=== PATIENT | female | born 1955 | race Caucasian/White ===

== ENCOUNTER 2021-12-16 07:15 | Day surgery (SDC) | payer MEDICARE, MEDICAID, SELFPAY ==
[2021-12-11 15:44] VITALS: BMI 28.3
--- NOTE | 2021-12-13 15:07 | P.CONAN_ITS ---
Documented by User: Latanya Mitchell NP 12/13/21 15:07 HPI - Anesthesia Eval Consult details Narrative: 66yo F for Left Cataract Extraction IOL Insertion PCP cleared No previous cataract on record PMFSH Past Medical History Medical History Arthritis Cataract Diabetes HTN (hypertension) Unvaccinated for covid-19 Surgical History Surgical History History of nasal surgery Hx of colonoscopy Social History Social History Patient Tobacco Use Status: Never used Tobacco Are you DNR?: No Advance Directives: No Advance Directives Information Provided: Yes Advance Directives on File: No Meds Allergies Allergy/AdvReac Type Severity Reaction Status Date / Time No Known Allergies Allergy Verified 12/11/21 15:42 Home Medications Medication Instructions Recorded Confirmed Last Taken Type aspirin 81 mg tablet,delayed 1 tab PO DAILY 12/11/21 12/11/21 12/15/21 History release dulaglutide 1.5 mg/0.5 mL 1.5 mg subcut QWEEK 12/11/21 12/11/21 Unknown History subcutaneous pen injector (Trulicity) glimepiride 4 mg tablet 1 tab PO DAILY 12/11/21 12/11/21 Unknown History insulin glargine 100 unit/mL (3 40 unit subcut BEDTIME 12/11/21 12/11/21 Unknown History mL) subcutaneous pen (Lantus Solostar U-100 Insulin) lisinopril 20 1 tab PO DAILY 12/11/21 12/11/21 Unknown History mg-hydrochlorothiazide 12.5 mg tablet Exam Exam Date and Time: December 13, 2021 1507 Height,Weight and Vital Signs: Height 5 ft 4.96 in Weight 77.111 kg Assessment and Plan Assessment Anesthesia Assessment: Chart Reviewed Documented by User: Dena Wilson MD 12/16/21 08:43 [facility], [facility] Past Medical History Medical History Arthritis Cataract Diabetes HTN (hypertension) Unvaccinated for covid-19 Family History Family history of problems with anesthesia: No Surgical History Surgical History History of nasal surgery Hx of colonoscopy History of Problems with Anesthesia: No Social History Social History Patient Tobacco Use Status: Never used Tobacco Are you DNR?: No Advance Directives: No Advance Directives Information Provided: Yes Advance Directives on File: No Meds Allergies Allergy/AdvReac Type Severity Reaction Status Date / Time No Known Allergies Allergy Verified 12/11/21 15:42 Home Medications Medication Instructions Recorded Confirmed Last Taken Type aspirin 81 mg tablet,delayed 1 tab PO DAILY 12/11/21 12/11/21 12/15/21 History release dulaglutide 1.5 mg/0.5 mL 1.5 mg subcut QWEEK 12/11/21 12/11/21 Unknown History subcutaneous pen injector (Trulicity) glimepiride 4 mg tablet 1 tab PO DAILY 12/11/21 12/11/21 Unknown History insulin glargine 100 unit/mL (3 40 unit subcut BEDTIME 12/11/21 12/11/21 Unknown History mL) subcutaneous pen (Lantus Solostar U-100 Insulin) lisinopril 20 1 tab PO DAILY 12/11/21 12/11/21 Unknown History mg-hydrochlorothiazide 12.5 mg tablet Exam Height,Weight and Vital Signs: Height 5 ft 4.96 in Weight 77.111 kg Vital Signs Temp Pulse Resp BP Pulse Ox O2 Del Method 12/16/21 07:44 96.7 F L 68 18 157/74 H 98 Room Air Pertinent Lab Results Pertinent Lab Results: Lab Results 12/16/21 Range/Units 07:59 POC Glucose 128 H (60-115) mg/dL Airway Mallampati Class: II TM Dist: >3cm Neck ROM: Full Denture: Upper and Lower Heart: RRR Lungs: CTAB Assessment and Plan Assessment Anesthesia Assessment: Anesthesia Plan Discussed Final Anesthetic Review Family History of Problems with Anesthesia: No History of Problems with Anesthesia: No NPO: Yes ASA Class: II Final Preanesthetic Review: No Changes in Pt Med Stat, Meds/Allgs Chart Reviewed, Consent Obtained/Reviewed and Anes Risks/Benef Reviewed Patient Risk: Low Procedure Risk: Low Assessment/Block/Sedation in SS: Assess/Block/Sedation-SS Anesthetic Plan Anesthetic Plan: MAC: Disposition: Standard PACU
--- NOTE | 2021-12-13 16:06 | MHC.SHP ---
Pre-Procedural Eval Section A Date of Service: 12/13/21 The patient is an INPATIENT: No Changes since office visit: No Cold of Flu in the past 2 weeks, No New Medical Problems, No Changes in Medication and No Patient answered all questions The History & Physical has been completed within 30 days and I have reviewed it.: Yes Section B Chief Complaint: cataract Allergies: Allergies Allergy/AdvReac Type Severity Reaction Status Date / Time No Known Allergies Allergy Verified 12/11/21 15:42 Plan Diagnosis/Plan: Unchanged I have reviewed the history and physical and performed a pertinent physical examination on my patient. No changes have occurred unless specified.
[2021-12-16 07:44] VITALS: BP 157/74; PULSE 68; RESP 18; TEMP 35.9; O2SAT 98
[2021-12-16] MEDS: Cyclopentolate 1 % Ophth Sol 2 ML DRPBTL 1 DROP EYE-LEFT ×3 (08:01→08:03)
[2021-12-16] MEDS: Phenylephrine HCL 2.5% Oph SoL 2 ML BOTTLE 1 DROP EYE-LEFT ×3 (08:01→08:04)
[2021-12-16] MEDS: Tropicamide 1 % Ophth Sol 3 ML BTL 1 DROP EYE-LEFT ×3 (08:01→08:03)
[2021-12-16] MEDS: Lactated Ringers 500 ML 50 ML IV (08:01)
[2021-12-16] MEDS: Tetracaine HCl/PF 0.5% Oph Sol 4 ML DROPS 1 DROP EYE-LEFT (08:01)
[2021-12-16 08:04] LABS: Glucose, Whole Blood 128 mg/dL (60-115)
--- NOTE | 2021-12-16 09:12 | HO.PNOPHT ---
Ophthalmology Procedure Procedure Date of Service: 12/16/21 Ophthalmology Viscoelastic: Healsam Schreibert Dual Pack Pro Ophthalmology Lenses: TECCARY [id number] (22) Procedure Notes: PREOPERATIVE DIAGNOSIS: Decreased visual acuity left eye secondary to cataract POSTOPERATIVE DIAGNOSIS: Same PROCEDURE: Left cataract extraction with intraocular lens insertion SURGEON: Valdez Curtis M.D. ANESTHESIA: Topical/MAC ESTIMATED BLOOD LOSS: None COMPLICATIONS: None After obtaining informed consent, the patient was brought to the operation room suite and placed in the supine position. After adequate sedation per anesthesia, topical drops of Tetracaine were given to the left eye. The eye was then prepped and draped in the usual sterile fashion. The operating room microscope was then positioned over the operative eye and a lid speculum placed. A paracentesis was created. Viscoelastic was then instilled into the anterior chamber. A three plane incision was then created temporally, utilizing a 2.85 mm keratome. Capsulotomy forceps were then utilized to create a circular tear capsulotomy. Hydrodissection and hydrodelineation were carried out until adequate mobilization of the nucleus occurred. Phacoemulsification was then utilized to remove the dense central nucleus followed by removal of the cortical material utilizing the automated aspiration irrigation unit. Viscoat elastic was instilled into the posterior capsular bag followed by placement of a posterior chamber intraocular lens without difficulty. The residual Viscoat elastic was then removed utilizing the automated IA machine. The wound was check and found to be watertight. The patient tolerated the procedure well and the lid speculum was removed. Intracameral injection of Vigamox 0.1 mL followed by a subtenon injection of Kenalog-40 0.2 mL were administered. The patient will be seen in the a.m.
[2021-12-16 09:35] VITALS: BP 176/76; PULSE 60; RESP 16; TEMP 36.3; O2SAT 97
== END 2021-12-16 09:45 | disposition home or self-care (01) ==
PROVIDERS: PCP Physician Assistant; Visit Provider Ophthalmology
PROC: (CPT 66985; principal; 2021-12-16 09:10)
DX: H25.12 Age-related nuclear cataract, left eye (principal); H52.03 Hypermetropia, bilateral; E11.3593 Type 2 diabetes mellitus with proliferative diabetic retinopathy without macular edema, bilateral; I10 Essential (primary) hypertension; M19.90 Unspecified osteoarthritis, unspecified site; Z79.4 Long term (current) use of insulin; Z79.899 Other long term (current) drug therapy
CPT/HCPCS: 66984; 82947; J2250; J3010; J3300; V2632

== ENCOUNTER 2022-01-06 05:44 | Day surgery (SDC) | payer MEDICARE, MEDICAID, SELFPAY ==
[2021-12-11 15:47] VITALS: BMI 28.3
--- NOTE | 2022-01-03 12:49 | HO.ANESPROP2 ---
Documented by User: Latanya Mitchell NP 01/03/22 12:57 HPI - Anesthesia Eval Consult details Narrative: 66yo F for Right Cataract Extraction IOL Insertion PCP cleared Left eye 12/16/ with TIVA: Fent 50, Midaz 1 PMFSH Past Medical History Medical History Arthritis Cataract Diabetes HTN (hypertension) Unvaccinated for covid-19 Family History Family history of problems with anesthesia: No Surgical History Surgical History (Updated 01/06/22 @ 06:34 by Gricel Salomon RN) History of nasal surgery Hx of colonoscopy Hx of left cataract extraction History of Problems with Anesthesia: No Social History Social History Patient Tobacco Use Status: Never used Tobacco Use of substances other than those prescribed or required for medical reasons: No Are you DNR?: No Advance Directives: No Advance Directives Information Provided: Yes Advance Directives on File: No Meds Allergies Allergy/AdvReac Type Severity Reaction Status Date / Time No Known Allergies Allergy Verified 01/06/22 06:34 Home Medications Medication Instructions Recorded Confirmed Last Taken Type aspirin 81 mg tablet,delayed 1 tab PO DAILY 12/11/21 12/11/21 12/15/21 History release dulaglutide 1.5 mg/0.5 mL 1.5 mg subcut QWEEK 12/11/21 12/11/21 Unknown History subcutaneous pen injector (Trulicity) glimepiride 4 mg tablet 1 tab PO DAILY 12/11/21 12/11/21 Unknown History insulin glargine 100 unit/mL (3 40 unit subcut BEDTIME 12/11/21 12/11/21 Unknown History mL) subcutaneous pen (Lantus Solostar U-100 Insulin) lisinopril 20 1 tab PO DAILY 12/11/21 12/11/21 Unknown History mg-hydrochlorothiazide 12.5 mg tablet Exam Exam Date and Time: January 03, 2022 1249 Height,Weight and Vital Signs: Height 5 ft 4.96 in Weight 77.111 kg Assessment and Plan Assessment Anesthesia Assessment: Chart Reviewed Final Anesthetic Review Family History of Problems with Anesthesia: No History of Problems with Anesthesia: No Documented by User: Maryellen Esparza MD 01/06/22 07:30 PMFSH Past Medical History Medical History Arthritis Cataract Diabetes HTN (hypertension) Unvaccinated for covid-19 Functional capacity: independent ambulation Patient : No Surgical History Surgical History (Updated 01/06/22 @ 06:34 by Gricel Salomon RN) History of nasal surgery Hx of colonoscopy Hx of left cataract extraction Social History Social History Patient Tobacco Use Status: Never used Tobacco Use of substances other than those prescribed or required for medical reasons: No Are you DNR?: No Advance Directives: No Advance Directives Information Provided: Yes Advance Directives on File: No Meds Allergies Allergy/AdvReac Type Severity Reaction Status Date / Time No Known Allergies Allergy Verified 01/06/22 06:34 Home Medications Medication Instructions Recorded Confirmed Last Taken Type aspirin 81 mg tablet,delayed 1 tab PO DAILY 12/11/21 12/11/21 12/15/21 History release dulaglutide 1.5 mg/0.5 mL 1.5 mg subcut QWEEK 12/11/21 12/11/21 Unknown History subcutaneous pen injector (Trulicity) glimepiride 4 mg tablet 1 tab PO DAILY 12/11/21 12/11/21 Unknown History insulin glargine 100 unit/mL (3 40 unit subcut BEDTIME 12/11/21 12/11/21 Unknown History mL) subcutaneous pen (Lantus Solostar U-100 Insulin) lisinopril 20 1 tab PO DAILY 12/11/21 12/11/21 Unknown History mg-hydrochlorothiazide 12.5 mg tablet Exam Airway Mallampati Class: II TM Dist: >3cm Neck ROM: Full Heart: RRR Lungs: CTA Assessment and Plan Assessment Anesthesia Assessment: Anesthesia Plan Discussed Final Anesthetic Review NPO: Yes ASA Class: II Final Preanesthetic Review: No Changes in Pt Med Stat, Meds/Allgs Chart Reviewed, Consent Obtained/Reviewed and Anes Risks/Benef Reviewed Patient Risk: Low Procedure Risk: Low Anesthetic Plan Anesthetic Plan: MAC: Disposition: Standard PACU
[2022-01-06 06:26] VITALS: BP 168/81; PULSE 59; RESP 16; TEMP 36.3; O2SAT 97
[2022-01-06 06:34] LABS: Glucose, Whole Blood 212 mg/dL (60-115)
--- NOTE | 2022-01-06 06:47 | MHC.SHP ---
Pre-Procedural Eval Section A Date of Service: 01/06/22 The patient is an INPATIENT: No Changes since office visit: No Cold of Flu in the past 2 weeks, No New Medical Problems, No Changes in Medication and No Patient answered all questions The History & Physical has been completed within 30 days and I have reviewed it.: Yes Section B Chief Complaint: cataract Allergies: Allergies Allergy/AdvReac Type Severity Reaction Status Date / Time No Known Allergies Allergy Verified 01/06/22 06:34 Plan Diagnosis/Plan: Unchanged I have reviewed the history and physical and performed a pertinent physical examination on my patient. No changes have occurred unless specified.
[2022-01-06] MEDS: Lactated Ringers 500 ML 50 ML IV (06:51)
--- NOTE | 2022-01-06 07:51 | HO.PNOPHT ---
Ophthalmology Procedure Procedure Date of Service: 01/06/22 Ophthalmology Viscoelastic: Healsam Duet Dual Pack Pro Ophthalmology Lenses: TECNIS [id number] (23.5) Procedure Notes: PREOPERATIVE DIAGNOSIS: Decreased visual acuity right eye secondary to cataract POSTOPERATIVE DIAGNOSIS: Same PROCEDURE: Right cataract extraction with intraocular lens insertion SURGEON: Valdez Curtis M.D. ANESTHESIA: Topical/MAC ESTIMATED BLOOD LOSS: None COMPLICATIONS: None After obtaining informed consent, the patient was brought to the operating room suite and placed in the supine position. After adequate sedation per anesthesia, topical drops of Tetracaine were given to the right eye. The eye was then prepped and draped in the usual sterile fashion. The operating room microscope was then positioned over the operative eye and a lid speculum placed. A paracentesis was created. Viscoelastic was then instilled into the anterior chamber. A three plane incision was then created temporally, utilizing a 2.85 mm keratome. Capsulotomy forceps were then utilized to create a circular tear capsulotomy. Hydrodissection and hydrodelineation were carried out until adequate mobilization of the nucleus occurred. Phacoemulsification was then utilized to remove the dense central nucleus followed by removal of the cortical material utilizing the automated aspiration irrigation unit. Viscoelastic was instilled into the posterior capsular bag followed by placement of a posterior chamber intraocular lens without difficulty. The residual Viscoelastic was then removed utilizing the automated IA machine. The wound was checked and found to be watertight. The patient tolerated the procedure well and the lid speculum was removed. Intracameral injection of Vigamox 0.1 mL followed by a subtenon injection of Kenalog-40 0.2 mL were administered. The patient will be seen in the a.m.
[2022-01-06 08:38] VITALS: BP 148/75; PULSE 60; RESP 16; TEMP 36.5; O2SAT 97
--- NOTE | 2022-01-06 10:44 | HO.POSTANES ---
Post Anesthesia Evaluation Post Anesthesia Evaluation Vital Signs: Vital Signs Temp Pulse Resp BP Pulse Ox O2 Del Method 01/06/22 08:38 97.7 F 60 16 148/75 H 97 Room Air 01/06/22 06:26 97.4 F 59 16 168/81 H 97 Room Air Anesthesia: Monitored Mental Status: Awake Pain Control: Satisfactory Nausea/Vomiting: None Hydration: Adequate Anesthesia-Related Issues: No Anes. Related Issues
== END 2022-01-06 08:57 | disposition home or self-care (01) ==
PROVIDERS: PCP Physician Assistant; Visit Provider Ophthalmology
PROC: (CPT 66985; principal; 2022-01-06 08:30)
DX: H25.11 Age-related nuclear cataract, right eye (principal); H52.03 Hypermetropia, bilateral; H54.7 Unspecified visual loss; E11.3593 Type 2 diabetes mellitus with proliferative diabetic retinopathy without macular edema, bilateral; I10 Essential (primary) hypertension; E11.9 Type 2 diabetes mellitus without complications; Z79.4 Long term (current) use of insulin; Z79.899 Other long term (current) drug therapy
CPT/HCPCS: 66984; 82947; J2250; J3010; J3300; V2632